=== PATIENT | male | born 1955 | race Native Hawaiian/Other Pacific Islander ===

== ENCOUNTER 2019-08-22 09:30 | Outpatient (CLI) | payer OTHER ==
[2019-08-22] MEDS ORDERED: GADOBUTROL 10 MMOL/10 ML VIAL ONE (09:43)
--- NOTE | 2019-08-22 11:02 | MRI Report ---
PROCEDURE: Lumbar Spine W/WO INDICATIONS: LOW BACK PAIN CONTRAST: IV CONTRAST: Gadavist ml: 10 TECHNIQUE: Noncontrast sagittal T1 spin echo and T2 fast spin echo, sagittal STIR, axial T1 and T2 fast spin ech o through the lumbar spine. In cases with scoliosis, additional coronal T2 fast spin echo may be per formed. After the administration of contrast, sagittal and axial T1 spin echo with fat saturation th rough the lumbar spine. COMPARISON: None. FINDINGS: Image quality: Excellent. Alignment and curvature: No plain films are available for comparison. Thus, for numbering purposes, 5 lumbar type vertebral bodies will be presumed for the current report. This should be confirmed with plain film correlation prior to any lumbar spinal intervention. There is mild grade 1 retrolisthesis of L1 on L2 and L2 on L3. Marrow: Marrow is of normal overall signal. No acute vertebral body compression fractures. No susp icious marrow enhancement. Mild reactive signal within the endplates adjacent to the L1-L2, L3-L4, a nd L4-L5 intervertebral discs. Spinal cord: Conus medullaris terminates at the mid T12 level. Visualized spinal cord demonstrates normal signal, without suspicious enhancement. Paraspinous soft tissues: No paravertebral masses or abnormal enhancement. T12-L1: Normal in appearance. L1-L2: Mild disc height loss and desiccation. Mild diffuse disc bulge. Mild bilateral facet and li gament flavum hypertrophy. Mild canal stenosis. Mild right foraminal stenosis. No left foraminal sten osis. L2-L3: Mild disc height loss and desiccation. Mild diffuse disc bulge. Mild facet and ligament fla vum hypertrophy. Mild canal stenosis. Mild bilateral foraminal stenoses. L3-L4: Mild disc height loss and desiccation. Mild diffuse disc bulge with superimposed left far la teral protrusion. Mild facet and ligament flavum hypertrophy. Mild epidural lipomatosis. Mild canal s tenosis. Mild left greater than right foraminal stenosis. L4-L5: Mild disc height loss and desiccation. Mild diffuse disc bulge. Mild facet and ligament flav um hypertrophy bilaterally. Moderate canal stenosis. Moderate right greater than left foraminal steno sis. L5-S1: Mild disc desiccation and diffuse disc bulge. Mild bilateral facet hypertrophy. Mild canal s tenosis. Moderate subarticular foraminal stenosis bilaterally. IMPRESSION: 1. Multilevel degenerative disc and facet disease, in addition to epidural lipomatosis and ligamentum flavum hypertrophy. 2. Multilevel canal stenoses, worst at L4-L5 where there is moderate canal stenosis. 3. Multilevel foraminal stenoses, worst at L4-L5 and L5-S1 where there are moderate foraminal stenose s present. Reviewed by: Chasity Mcclellan MD on 08/22/2019 11:01 AM PDT Approved by: Chasity Mcclellan MD on 08/22/2019 11:01 AM PDT Station ID: [id number]
[2019-08-22] MEDS ORDERED: GADOBUTROL 10 MMOL/10 ML VIAL IVP ONE (11:10)
== END 2019-08-22 09:31 | disposition home or self-care (01) ==
LOC: DI 09:30
PROVIDERS: ATTEND Nurse Practitioner Family
DX: M43.16 Spondylolisthesis, lumbar region (principal); M51.36 Other intervertebral disc degeneration, lumbar region; M51.37 Other intervertebral disc degeneration, lumbosacral region; M51.26 Other intervertebral disc displacement, lumbar region; M47.816 Spondylosis without myelopathy or radiculopathy, lumbar region; M47.817 Spondylosis without myelopathy or radiculopathy, lumbosacral region; M46.06 Spinal enthesopathy, lumbar region; M46.07 Spinal enthesopathy, lumbosacral region; M48.061 Spinal stenosis, lumbar region without neurogenic claudication; M48.07 Spinal stenosis, lumbosacral region
CPT/HCPCS: 72158; A9585

== ENCOUNTER 2019-10-18 08:53 | Outpatient (CLI) | payer OTHER ==
[2019-10-18] MEDS ORDERED: GADOBUTROL 7.5 MMOL/7.5 ML VIAL ONE (09:29)
[2019-10-18] MEDS ORDERED: GADOBUTROL 7.5 MMOL/7.5 ML VIAL IVP ONE (10:42)
--- NOTE | 2019-10-18 11:44 | MRI Report ---
PROCEDURE: Brain W/WO INDICATIONS: PARASTHESIA OF SKIN CONTRAST: IV CONTRAST: Gadavist ml: 7.5 TECHNIQUE: Noncontrast axial T1 spin echo, axial T2 fast spin echo, sagittal and axial FLAIR, coronal T2 fast sp in echo, axial gradient echo, axial diffusion and ADC through the brain. After the administration of contrast, axial and coronal T1 spin echo with fat saturation through the brain. COMPARISON: None. FINDINGS: Image quality: Excellent. CSF spaces: Basal cisterns are patent. No extra-axial fluid collections. Ventricles are normal in size and shape. Brain: No midline shift. No intracranial bleeds or masses. No abnormal intracranial enhancement. There is cerebral volume loss for age. There is periventricular white matter chronic small vessel is chemic change. The brainstem appears normal. Diffusion-weighted images demonstrate no acute ischemi c insults. No chronic ischemic insults. Normal intravascular flow voids are present. Skull and face: Calvarial marrow is normal in signal. Orbits appear normal. Sinuses: Sinuses and mastoids appear clear. IMPRESSION: No acute intracranial finding or intracranial findings to explain headache. Ethmoid and maxillary sinus inflammatory changes with small right maxillary sinus fluid level. Correl ate for any clinical evidence of acute sinusitis. CT scan of the sinuses could be considered for furt her evaluation of clinically warranted. Mild global cerebral volume loss and chronic vascular ischemic change. Reviewed by: Delmar Null MD on 10/18/2019 11:43 AM PDT Approved by: Delmar Null MD on 10/18/2019 11:43 AM PDT Station ID: [id number]
== END 2019-10-18 08:54 | disposition home or self-care (01) ==
LOC: DI 08:53
PROVIDERS: ATTEND Internal Medicine
DX: J34.89 Other specified disorders of nose and nasal sinuses (principal); G31.89 Other specified degenerative diseases of nervous system; I67.82 Cerebral ischemia
CPT/HCPCS: 70553; A9585

== ENCOUNTER 2021-03-22 07:36 | Outpatient (CLI) | payer OTHER ==
--- NOTE | 2021-03-22 10:01 | MRI Report ---
PROCEDURE: Lumbar Spine W/O INDICATIONS: SPONDYLOLISTHESIS OF LUMBAR REGION TECHNIQUE: Noncontrast sagittal T1 spin echo and T2 fast echo, sagittal STIR, axial T1 and T2 fast spin echo thr ough the lumbar spine. In cases with scoliosis, additional coronal T2 fast spin echo may be performe d. COMPARISON: 08/22/2019 MRI lumbar spine FINDINGS: Image quality: Excellent. Alignment and Curvature: There is normal bony alignment. Bone Marrow: Marrow is of normal overall signal. No acute vertebral body compression fractures. Spinal Cord: Conus medullaris terminates at the normal level. Visualized cord demonstrates normal s ignal and size. Regional Soft Tissues: Prevertebral and paraspinous soft tissues are normal. T12-L1: No spinal canal or neural foraminal stenosis. L1-L2: No spinal canal or neural foraminal stenosis. L2-L3: Disc desiccation and disc height loss. No spinal canal stenosis. Mild bilateral neural fora suni narrowing due to foraminal components of a diffuse disc bulge. L3-L4: Disc desiccation and disc height loss. Mild diffuse disc bulge which flattens the ventral th ecal sac but produces no spinal canal stenosis or displacement of the descending L4 nerve roots. Mild bilateral neural foraminal stenosis due to foraminal components of the disc bulge and facet hypertro phy. L4-L5: Diffuse disc bulge and a superimposed broad-based posterior disc protrusion which flattens a nd indents the ventral thecal sac. Disc material displaces the descending L5 nerve roots within both subarticular zones. Foraminal components of the disc bulge and facet hypertrophy combine to produce m oderate neural foraminal stenosis with flattening of the exiting L4 nerve roots due to abutment by di sc material. L5-S1: Diffuse disc bulge which mildly displaces the descending S1 nerve roots. Annular fissure in the left subarticular zone. Foraminal components of the disc bulge produce mild bilateral neural fora suni stenosis. IMPRESSION: Multilevel multifactorial degenerative changes, again most pronounced at L4-L5 and L5-S1. No signific ant change from the prior study. Reviewed by: Delmar Null MD on 03/22/2021 10:00 AM PST Approved by: Delmar Null MD on 03/22/2021 10:00 AM PST Station ID: [id number]
== END 2021-03-22 07:37 | disposition home or self-care (01) ==
LOC: DI 07:36
PROVIDERS: ATTEND Neurological Surgery
DX: M43.16 Spondylolisthesis, lumbar region (principal); M51.36 Other intervertebral disc degeneration, lumbar region; M48.061 Spinal stenosis, lumbar region without neurogenic claudication; M47.816 Spondylosis without myelopathy or radiculopathy, lumbar region; M51.26 Other intervertebral disc displacement, lumbar region; M51.37 Other intervertebral disc degeneration, lumbosacral region; M48.07 Spinal stenosis, lumbosacral region

== ENCOUNTER 2021-07-08 08:33 | Outpatient (CLI) | payer OTHER | END 2021-07-08 08:34 | disposition short-term general hospital (02) | LOC: EMS 08:33 | DX: R07.89 Other chest pain (principal); R94.31 Abnormal electrocardiogram [ECG] [EKG] | CPT/HCPCS: A0425; A0427 ==

== ENCOUNTER 2021-11-20 09:08 | Outpatient (CLI) | payer OTHER ==
--- NOTE | 2021-11-20 11:20 | CT Report ---
PROCEDURE: CT cervical spine without contrast INDICATIONS: F/U CERVICAL SPINAL FUSION, CERV SPONDYLOSIS W/RAD TECHNIQUE: Noncontrast 3 mm thick sections acquired from the skull base to the T4 level. Sagittal and coronal r eformats were then constructed. For radiation dose reduction, the following was used: automated exp osure control, adjustment of mA and/or kV according to patient size. COMPARISON: No prior exams available FINDINGS: Image quality: Excellent. There is straightening of the normal cervical lordosis. Normal bone mineralization present with minim al craniovertebral relationships. The prevertebral soft tissue unremarkable. There is been decompressive laminectomies at C5, C6 and C6-7 with posterior lateral fusion and theresa an d screw instrumentation. Large postoperative encapsulated fluid collection present in the posterior p araspinal soft tissues measures 7.6 x 3.4 x 6.1 cm. At C3-4, posterior disc osteophyte complex and hypertrophic facet joints result in mild central steno sis with moderate bilateral foraminal stenosis, greater on the left. At C3-4-5, disc space narrowing with posterior disc osteophyte complex results in mild to moderate ce ntral stenosis with mild bilateral foraminal stenosis. At C5-6, central canal is decompressed posteriorly. Hypertrophic uncovertebral joints results in mode rate bilateral foraminal stenosis. At C6-7, central canal is decompressed posteriorly. Ossification of posterior longitudinal ligament n oted. Hypertrophic uncovertebral joints result in moderate foraminal stenosis bilaterally. At C7-T1, central canal is decompressed posteriorly. Hypertrophic uncovertebral joints associated wit h moderate bilateral foraminal stenosis IMPRESSION: 1. Large postoperative encapsulated fluid collection in the posterior paraspinous soft tissues. Diffe rential would include large postoperative seroma versus abscess. Consider percutaneous sampling. 2. Multilevel degenerative disc disease and arthropathy Reviewed by: César Jacobs MD on 11/20/2021 10:18 AM [facility] Approved by: César Jacobs MD on 11/20/2021 10:18 AM ABBI Station ID: [id number]
== END 2021-11-20 09:09 | disposition home or self-care (01) ==
LOC: DI 09:08
PROVIDERS: ATTEND Neurological Surgery
DX: M50.31 Other cervical disc degeneration, high cervical region (principal); M48.02 Spinal stenosis, cervical region

== ENCOUNTER 2022-04-08 14:46 | Outpatient (CLI) | payer OTHER ==
[2022-04-08 16:03] VITALS: BP 130/70
--- NOTE | 2022-04-08 16:03 | SLEEP CARE CONSULTATION ---
Information from patient questionnaire entered by Ilda Phoenix. I have reviewed and concur with the information entered by Ilda Phoenix. This document represents the service I personally performed and the decisions made by me, Veronika Lerner ARNP. History of Present Illness Service Date and Time: 04/08/2022 1446 Reason for Visit: New patient, Previously diagnosed sleep apnea, sleep apnea on CPAP therapy Chief Complaint: reports: Insomnia, Unrefreshed sleep, Snoring, Excessive daytime sleepiness, Observed pauses in breathing, Fatigue (update supplies), Frequent awakenings at night, Other Date of Onset: 2004 Usual bedtime: 10pm Time it takes to fall asleep: 10min Snores at night: Yes Observed to quit breathing while asleep: Yes Sleeps alone due to snoring: Yes Number of times waking at night: 4+ Reasons for waking at night: reports: Choking, Snoring, Gasping for air, Bathroom Toss, Turn, or Twitch while sleeping: Yes Recalls having dreams: No Usually gets out of bed at: 6am Feels refreshed in the morning: No Morning headache: Yes (never) Sleepy or fatigued during the day: Yes Ever fallen asleep while driving: Yes Takes day naps: Yes Dreams during day naps: No Prior sleep studies: Yes (2006 [facility]) Additional HPI information: [place] was previously diagnosed to have unknown, AHI unknown, sleep apnea- hypopnea syndrome and comes in today to establish care for CPAP therapy. - Parasomnia Symptoms Ever been unable to move upon waking from sleep: No Walks in sleep: No Talks in sleep: No Ever acted out dreams in sleep: No Ever felt weak in the knees when startled or emotional: Yes Bothered by creepy, crawly, restless sensations in legs: Yes Problems with memory or concentration: Yes CPAP Compliance Data - Data Reviewed with Patient Average duration of nightly device use: 3.2 hours Compliance rate %: 43 ( days used) Current pressure setting (cmH2O): 5-20 (avg 9.4) Average residual AHI: 3.4 Compliance data discussion: He has a Dreamstation that he has registered it with [employer]. He states his machine is a couple years old. He has been getting supplies from a company in [place] called [employer]. He uses a nasal cushion mask, [employer]. We tried to get his data but were unable to obtain anything from the card. I was able to obtain last 30 days of use but his CPAP was lost by the airlines and just got it back 2 weeks ago. Subjective Missed days of use due to: reports: travel (airline lost his CPAP in January and he just got it back 2 weeks ago) Patient concerns: reports: condensation in mask/hose (sometimes), dry mouth, nose, throat (sometimes). denies: aerophagia, mask discomfort, air blowing in eyes, mask leak noise, nasal congestion, epistaxis Observed to snore while using device: No Current pressure setting perceived as: too low On therapy, patient: reports: sleeping better, awakening more refreshed, being m ore awake and alert during the day, more rested overall, drowsiness while driving Initial Hume Sleepiness Scale score: 24 (04/08/22) Past Medical History Past Medical History: reports: Hypertension, Depression Social History The patient's occupation is a RE. Patient is and lives in [place]. Have you smoked in the past 12 months: No Years of smokin Quit date: 2002 Alcohol use: Yes Alcohol amount and frequency: occasional Caffeine use: Yes Caffeine amount and frequency: 4 cups Family History Family history of sleep disordered breathing: Yes Family Hx Sleep Apnea: Mother: Snoring, Sleep apnea - Untreated, Father: Snoring, Sleep apnea - Untreated, Sibling: Snoring, Sleep apnea - Untreated Allergies and Home Medications Known drug allergies: Yes (amitriptyline) Drug allergies reviewed: Yes Home medication list reviewed: Yes Allergy and home medication list: Medications: Gabapentin Aspirin Atorvastatin Telmasartin Prozac Review of Systems Weight gain over past 5 years: 40 Respiratory: reports: shortness of breath, wheeze Gastrointestinal: reports: heartburn, abdominal pain Neurological: reports: headaches Psychiatric: reports: depression Ear/Nose/Throat: reports: nose bleeds Musculoskeletal: reports: neck pain, back pain, muscle pain or cramping, mobility problems Physical Exam Vital signs obtained and entered by: ILDA Calhoun MA Blood Pressure: 130/70 (left arm) Cuff size: long Heart Rate: 62 O2 Saturation: 97 Height: 5 ft 6 in Weight: 214 lb 12.8 oz Body Mass Index: 34.7 BMI Classification: Obese Neck circumference: 20 Heart: regular rate and rhythm Lungs: clear bilaterally Impression and Plan 1. Obstructive Sleep Apnea-Hypopnea Syndrome, unknown, with fair treatment compliance and good apnea control. On CPAP therapy, the patient has better sleep quality and is more rested overall. He states his last sleep study was done in [address] [facility] and he cannot get the records. I will order a polysomnography to verify diagnosis and severity. Once we have those results we can move forward with getting him a new device and supplies. He has been getting supplies from a company in [place] but states they have told him he needs a new prescription for a new machine. He has a Dreamstation that he did register for the recall but has not received a replacement yet. He states he cannot sleep without his machine. His machine shows a start up date in 2016. He is not sure how long he has had the Dreamstation. Once I have sleep study results I will try to replace him machine for him. Patient's apnea severity and rationale for treatment to reduce apnea, improve sleep quality and reduce cardiovascular and cerebrovascular events was reviewed. I also reviewed the benefit of consistent device use of CPAP for hypertension and depression. * Continue auto CPAP pressure at 5-20 cmH2O * Polysomnography/HST * Notify me if snoring with mask or feeling that the pressure is too much or too little * Attempt to lose weight * Call this office if any problems using CPAP * Return for follow up after sleep study completed to review results, or sooner if concerns arise Counseling Topics: Spare mask, Weight loss health impact Visit Type: In Office Time Spent with Patient (minutes): 44 Provider Statement: I spent 100% of the Face to Face Visit with the patient with greater than 50% spent counseling the patient and coordination of care.
== END 2022-04-08 14:47 | disposition home or self-care (01) ==
LOC: SC 14:46
PROVIDERS: ATTEND Nurse Practitioner Family
DX: G47.33 Obstructive sleep apnea (adult) (pediatric) (principal); E66.9 Obesity, unspecified; Z68.34 Body mass index [BMI] 34.0-34.9, adult; Z87.891 Personal history of nicotine dependence
CPT/HCPCS: 99203; 99212

== ENCOUNTER 2022-11-16 11:23 | Outpatient (CLI) | payer MEDICARE, OTHER ==
--- NOTE | 2022-11-16 09:33 | SLEEP CARE CONSULTATION ---
Information from patient questionnaire entered by Ilda Phoenix. I have reviewed and concur with the information entered by Ilda Phoenix. This document represents the service I personally performed and the decisions made by me, Veronika Lerner ARNP. History of Present Illness Service Date and Time: 11/16/2022 0900 Previous diagnosis: Obstructive Sleep Apnea-Hypopnea Syndrome (unknown severity) Reason for follow up: other (7 MONTH F/U PT NEVER DID STUDY) Prior sleep studies: Yes (2006 [facility]) HPI additional information: I had the pleasure of seeing FAISAL [place] today regarding the possibility of him having a sleep disorder. He was seen in this office about 7 months ago to re- establish care but we could not obtain a copy of his sleep study records. He returns today via telehealth visit to reorder study because he needs a new machine. His Seymour is at 22/24. Sleep Study - Results Prior sleep studies: Yes (2006 [facility]) Subjective Initial [place] Sleepiness Scale score: 24 (04/08/22) Current [place] Sleepiness Scale score: 22 (11/18/22) Allergies and Home Medications Known drug allergies: Yes (amitriptyline) Drug allergies reviewed: Yes Home medication list reviewed: Yes (no changes) Allergy and home medication list: Allergies amitriptyline Allergy (Verified 11/15/22 12:34) Review of Systems Review of systems same as previous: Yes (no changes) Physical Exam Vital signs obtained and entered by: ILDA Calhoun MA Blood Pressure: 128/76 (PER PT) Height: 5 ft 6 in (PER PT) Weight: 210 lb (PER PT) Body Mass Index: 33.9 BMI Classification: Obese Impression and Plan 1. Suspected Obstructive Sleep Apnea-Hypopnea Syndrome, as previously diagnosed, to continue care. Patient states he is not sure why the sleep study did not get done, he thinks he might of forgotten about it. He is using a machine that he was gifted by someone else because he cannot sleep without it. He states it is a very old machine and he really would like to get a new machine because his symptoms seem to be getting worse and he is not sure about his therapy. We do not have a copy of his last sleep study, so I do recommend that we proceed to polysomnography to confirm the diagnosis and to assess severity. I obtained agreement to proceed. The pathophysiology of obstructive sleep apnea-hypopnea syndrome was discussed with the patient and health risks of cardiovascular and cerebrovascular disease if not treated. Risks of drowsy driving discussed in detail and patient advised to avoid long distance driving and to lug breaker and wire puller at the first sign of drowsiness. Patient agreed to plan. He has a history of hypertension and depression. 2. Obesity, unspecified. Currently patients BMI is 33.9. Obesity increases the risk of apnea, CPAP pressure requirements and overall health risks especially cardiovascular and diabetes. Thus patient is advised to lose weight. * Schedule polysomnography. * Avoid long distance driving or driving when feeling sleepy. * Avoid alcohol, sedative and muscle relaxant around bedtime. * Attempt to lose weight. * Review instructions provided by trained office staff on how to prepare for the sleep study. * Return for follow-up after sleep study completed. Counseling Topics: Weight loss health impact Visit Type: Telehealth Phone Video Type: Harry Patient Location: Home Location of Provider: Office Patient agrees and consents to this telehealth visit type: Yes Patient agrees to have their insurance billed: Yes Time Spent with Patient (minutes): 10 Provider Statement: I spent 100% of the Telehealth Phone Call with the patient with greater than 50% spent counseling the patient and coordination of care.
[2022-11-16 09:34] VITALS: BP 128/76
== END 2022-11-16 11:24 | disposition home or self-care (01) ==
LOC: SC 11:23
PROVIDERS: ATTEND Nurse Practitioner Family
DX: G47.33 Obstructive sleep apnea (adult) (pediatric) (principal); E66.9 Obesity, unspecified; Z68.33 Body mass index [BMI] 33.0-33.9, adult

== ENCOUNTER 2022-12-02 19:10 | Outpatient (CLI) | payer MEDICARE, OTHER | END 2022-12-02 19:11 | disposition home or self-care (01) | LOC: SC 19:10 | PROVIDERS: ATTEND Nurse Practitioner Family | DX: G47.33 Obstructive sleep apnea (adult) (pediatric) (principal); E66.9 Obesity, unspecified; Z68.33 Body mass index [BMI] 33.0-33.9, adult | CPT/HCPCS: 95810 ==